=== PATIENT | male | born 1990 | race Caucasian/White ===

== ENCOUNTER 2023-05-22 08:13 | Emergency (ER) | payer BC ==
[2023-05-22] MEDS ORDERED: Ibuprofen 600 MG Tab PO ONE (09:07)
[2023-05-22] MEDS ORDERED: Acetaminophen 500 MG Tab PO ONE (09:07)
[2023-05-22] MEDS ORDERED: predniSONE 20 MG Tab PO ONE (09:07)
== END 2023-05-22 10:00 | disposition home or self-care (01) ==
LOC: MW.ED 08:13
DX: J02.9 Acute pharyngitis, unspecified (principal); I10 Essential (primary) hypertension; Z79.899 Other long term (current) drug therapy; Z88.1 Allergy status to other antibiotic agents
CPT/HCPCS: 87651; 99283; A9270